=== PATIENT | female | born 1990 ===

== ENCOUNTER 2022-01-07 15:51 | Emergency (ER) | payer BC ==
[2022-01-07 16:21] LABS: Hemoglobin 13.3 g/dL (12.0-16.0); Mean Corpuscular HGB CONC 33.9 g/dL (32.0-36.0); Mean Corpuscular Hemoglobin 30.5 pg (27.0-31.0); Mean Corpuscular Volume 89.9 fL (78.0-98.0); Mean Platelet Volume 6.7 fL (7.4-10.4); Platelet Count 286 thou/uL (130-400); RBC Distribution Width 11.8 % (11.5-14.5); Red Blood Cell (RBC) Count 4.35 mill/uL (4.20-5.40); White Blood Cell (WBC) Count 5.8 thou/uL (4.8-10.8)
[2022-01-07 16:44] LABS: Band 1 % (5-11); Eosinophils 2 % (0-10); Lymphocytes 40 % (21-51); MDiff Complete? YES; Monocytes 8 % (0-10); Neutrophil 38 % (42-75); Platelet Morphology Comment Appears Adequate; RBC Morphology Normal; Reactive Lymphocytes 11 % (0-10)
[2022-01-07 17:00] LABS: ALT (SGPT) 37 U/L (8-55); Albumin 3.9 g/dL (3.5-5.0); Calcium 8.6 mg/dL (7.8-10.44); Chloride 105 mmol/L (98-107); Globulin 3.2 g/dL (2.4-3.5); Glucose 110 mg/dL (70-105); Lipase 58 U/L (8-78); Potassium 4.1 mmol/L (3.5-5.1); Protein, Total 7.1 g/dL (6.0-8.3); Sodium 137 mmol/L (136-145)
[2022-01-07 17:28] LABS: BHCG - Serum Negative (NEGATIVE); Pregs Control Background? CLEAR/WHITE (CLR/WHITE); Pregs Control Bar Appear? YES (CONTROL BAR)
[2022-01-07 17:34] LABS: Anion Gap 13 mmol/L (10-20); Bilirubin, Total 0.3 mg/dL (0.2-1.2); Carbon Dioxide 23 mmol/L (22-29)
[2022-01-07 17:35] LABS: Alkaline Phosphatase 56 U/L (40-110)
[2022-01-07 17:36] LABS: Calc. Creatinine Clearance 0 mL/min (70-130)
[2022-01-07 17:37] LABS: BUN (Urea Nitrogen) 11 mg/dL (7.0-18.7)
[2022-01-07 17:38] LABS: AST (SGOT) 26 U/L (5-34)
== END 2022-01-07 19:20 | disposition home or self-care (01) ==
LOC: ERS 15:51
DX: F41.0 Panic disorder [episodic paroxysmal anxiety] (principal)
CPT/HCPCS: 36415; 71045; 80053; 83690; 84484; 84703; 85025; 93005; 94760